=== PATIENT | male | born 1935 | race Two or more races ===

== ENCOUNTER 2018-08-10 13:22 | Outpatient (CLI) | payer OTHER ==
[~2018-08-10 13:22] MED LIST: CLONAZEPAM0.5 MG; DONEPEZIL HCL10 MG; LISINOPRIL20 MG; PLAVIX75 MG; SERTRALINE HCL25 MG; TAMS0.4C; ZOCOR20 MG
== END 2018-08-10 13:30 | disposition home or self-care (01) ==
LOC: MRI 13:22
DX: I63.89 Other cerebral infarction (principal)
CPT/HCPCS: 70551